=== PATIENT | female | born 1935 | race Caucasian/White ===

== ENCOUNTER → 2021-11-11 | Outpatient (REF) | payer MEDICARE, OTHER, SELFPAY ==
[2021-11-11 09:38] LABS: Anion Gap 9 (5-15); BUN 49 mg/dL (7-18); BUN/Creat Ratio 35.3 RATIO (10-20); Calcium,Total 9.1 mg/dL (8.5-10.1); Chloride 124 mmol/L (98-107); Cholesterol 96 mg/dL (200); Creatinine, Serum 1.39 mg/dL (0.55-1.02); EST Glomerular Filtration Rate 38 mL/min (>60); Est Glom Filt Rate - Afr Amer 46 mL/min (>60); Glucose 134 mg/dL (74-106); High Density Lipoprotein 23 mg/dL; Potassium 3.5 mmol/L (3.5-5.1); Sodium Level 155 mmol/L (136-145); Thyroid Stim Hormone (TSH) 2.06 uIU/mL (0.358-3.74); Triglycerides 94 mg/dL; Very Low Density Lipoprotein 19 mg/dL (5-40)
== END ==
LOC: OLS.ACH 05:16
PROVIDERS: Visit Provider Family Medicine
DX: K57.90 Diverticulosis of intestine, part unspecified, without perforation or abscess without bleeding (principal); E78.5 Hyperlipidemia, unspecified; E03.9 Hypothyroidism, unspecified; S22.41XD Multiple fractures of ribs, right side, subsequent encounter for fracture with routine healing
CPT/HCPCS: 36415; 80048; 80061; 84443